=== PATIENT | female | born 1955 | race Caucasian/White ===

== ENCOUNTER 2020-09-16 12:01 | Outpatient (CLI) | payer MEDICARE, SELFPAY ==
[2020-09-16 12:24] LABS: Basophils Absolute Auto 0.05 K/mm3 (0.00-0.10); Basophils Percent Auto 0.8 % (0.0-1.0); Eosinophils Percent Auto 1.6 % (1.0-6.0); Hematocrit 41.1 % (35.0-42.0); Hemoglobin 14.2 g/dL (11.7-13.8); Immature Granulocyte Absolute 0.01 K/mm3 (0.00-0.00); Immature Granulocyte Percent A 0.2 % (0.0-0.0); Lymphocytes Absolute Auto 1.75 K/mm3 (1.10-4.50); Mean Corpuscular HGB Conc 34.5 g/dL (32.0-36.0); Mean Corpuscular Hemoglobin 31.8 pg (27.0-31.0); Mean Corpuscular Volume 91.9 fL (78.0-102.0); Mean Platelet Volume 9.8 fl (9.2-11.8); Monocytes Absolute Auto 0.47 K/mm3 (0.10-0.90); Monocytes Percent Auto 7.5 % (2.0-11.0); Neutrophils Absolute Auto 3.9 K/mm3 (1.7-7.2); Neutrophils Percent Auto 61.9 % (50.0-70.0); Platelet Count Result 269 K/mm3 (150-420); Red Blood Count 4.47 M/mm3 (4.20-5.40); Red Cell Distribution Width 12.6 % (11.6-14.4); White Blood Count 6.2 K/mm3 (4.8-10.8)
[2020-09-16 13:10] LABS: Alanine Aminotransferase 20 U/L (14-59); Albumin Level 4.3 g/dL (3.4-5.0); Alkaline Phosphatase 89 U/L (46-116); Anion Gap 9 mmol/L (8-16); Aspartate Amino Transferase 12 U/L (15-37); Bilirubin,Total 0.6 mg/dL (0.00-1.00); Blood Urea Nitrogen 19 mg/dL (7-18); Calcium 9.3 mg/dL (8.5-10.1); Carbon Dioxide 29 mmol/L (21-32); Chloride 102 mmol/L (98-108); Cholesterol 181 mg/dL (0-200); Estimated Glomerular Filt Rate 48; Glucose 98 mg/dL (70-99); HDL Direct 68 mg/dL (40-60); LDL Cholesterol Calculated 95 mg/dL (<130); Osmolality Calculated 292 mOsm/kg (285-295); Potassium 3.9 mmol/L (3.5-5.1); Sodium 140 mmol/L (136-145); Total Protein 7.3 g/dL (6.4-8.2); Triglycerides 88 mg/dL (0-150)
== END 2020-09-16 12:02 | disposition home or self-care (01) ==
LOC: CHSLAB 12:04
PROVIDERS: PCP Nurse Practitioner Family; Visit Provider Nurse Practitioner Family
DX: E78.5 Hyperlipidemia, unspecified (principal); I10 Essential (primary) hypertension
CPT/HCPCS: 36415; 80053; 80061; 85025

== ENCOUNTER 2020-12-24 00:24 | Day surgery (SDC) | payer MEDICARE, OTHER, SELFPAY ==
[2020-12-17 08:40] VITALS: BMI 20.8
[2020-12-24 09:37] VITALS: BP 123/79; PULSE 74; RESP 20; TEMP 36.6; O2SAT 99; BMI 20.7
[2020-12-24] MEDS: LACTATED RINGERS 1,000 ML 150 ML IV CONT (09:48)
--- NOTE | 2020-12-24 10:19 | PM.HPGS ---
History of Present Illness History of Present Illness Consent: Risks, benefits, and alternatives have been discussed and questions answered. Patient agrees to proceed with procedure. Chief complaint: neoplasm screening Z12.11 Narrative: Jaqui Russo is a 65 year old female here for first colonoscopy, father and brother had colon cancer. Review of Systems Constitutional: Constitutional: Denies headache(s) and Denies weakness Eyes: Eyes: Denies blurry vision ENT: Reports Normal hearing present, Denies headache(s) and Denies neck pain Cardiovascular: Cardiovascular: Denies chest pain and Denies dyspnea Respiratory: Respiratory: Denies dyspnea Gastrointestinal: Gastrointestinal: Reports no additional gastrointestinal complaints Genitourinary: Genitourinary: Denies dysuria Musculoskeletal: Musculoskeletal: Denies neck pain Integumentary/Breasts: Skin/Breast: Denies dry skin Neurologic: Reports Normal hearing present, Denies headache(s) and Denies weakness Psychiatric: Psychiatric: Denies anxiety Endocrine: Endocrine: Denies change in body appearance Hematologic/Lymphatic: Hematologic/Lymphatic: Denies easy bleeding Allergic/Immunologic: Allergic/Immunologic: Denies urticaria PMF Past Medical History Medical History (Updated 12/24/20 @ 10:19 by Deshawn Ferris MD) BMI 26.0-26.9,adult Family history of colon cancer HTN (hypertension) Hyperlipidemia Surgical History Surgical History No pertinent past surgical history Family History Family History Father Malignant neoplasm of prostate Social History Social History Smoking status: Never smoker Tobacco type: cigarettes Alcohol intake: never Substance use: never Substance use type: does not use Living arrangements: alone Spiritual care concerns: No Meds Home Medications and Allergies Home Medications Medication Instructions Recorded Confirmed Type triamcinolone acetonide 0.1 % 1 applic TOPICAL TID PRN #80 g 09/16/20 12/17/20 Rx topical cream metoprolol tartrate 50 mg tablet See Rx Instructions .ROUTE 12/18/20 12/24/20 Rx .COMPLEX #90 tablet simvastatin 40 mg tablet See Rx Instructions .ROUTE 09/02/21 09/08/21 Rx .COMPLEX #90 tablet triamterene 37.5 See Rx Instructions .ROUTE 12/18/20 12/24/20 Rx mg-hydrochlorothiazide 25 mg tablet .COMPLEX #90 tablet Allergies Allergy/AdvReac Type Severity Reaction Status Date / Time No Known Allergies Allergy Verified 12/24/20 09:35 Vital Signs Vital Signs - 24 hr 12/24/20 09:37 Temperature 97.9 F Pulse Rate 74 Respiratory Rate 20 Blood Pressure 123/79 Pulse Oximetry 99 Exam Const: General: comfortable and no acute distress HENMT: General nose exam: Normal nares present Eyes: General: appearance normal, both eyes and all related structures Neck: Neck: no JVD Resp: Auscultation: clear to auscultation bilaterally Cardio: Rate: regular rate Rhythm: regular rhythm GI: Inspection: non-distended GI Palp: Yes Soft to palpation Skin: General skin exam: normal color Neuro: General: gait normal Speech: normal speech Extrem: General: normal to inspection Psych: Mental Status: mental status grossly normal Assessment and Plan Assessment and plan (1) Family history of colon cancer: Code(s): Z80.0 - Family history of malignant neoplasm of digestive organs Status: Acute Assessment and Plan: colonoscopy
[2020-12-24 10:37] VITALS: BP 95/67; PULSE 73; RESP 18; O2SAT 99
[2020-12-24 10:47] VITALS: BP 105/61; PULSE 69; RESP 16; O2SAT 99
[2020-12-24 10:57] VITALS: BP 117/74; PULSE 66; RESP 16; O2SAT 100
== END 2020-12-24 11:15 | disposition home or self-care (01) ==
PROVIDERS: PCP Nurse Practitioner Family; Visit Provider Internal Medicine Gastroenterology
PROC: 0DJD8ZZ Inspection of Lower Intestinal Tract, Via Natural or Artificial Opening Endoscopic (ICD-10-PCS; CPT 45378; principal; 2020-12-24 10:00)
DX: Z12.11 Encounter for screening for malignant neoplasm of colon (principal); K57.30 Diverticulosis of large intestine without perforation or abscess without bleeding; K64.8 Other hemorrhoids; Z80.0 Family history of malignant neoplasm of digestive organs; I10 Essential (primary) hypertension; E78.5 Hyperlipidemia, unspecified
CPT/HCPCS: G0105; J2704; J7120

== ENCOUNTER 2021-09-30 11:25 | Outpatient (CLI) | payer MEDICARE, OTHER, SELFPAY ==
[2021-09-30 11:36] LABS: Basophils Absolute Auto 0.05 K/mm3 (0.00-0.10); Basophils Percent Auto 0.8 % (0.0-1.0); Eosinophils Absolute Auto 0.13 K/mm3 (0.02-0.50); Hematocrit 41.3 % (35.0-42.0); Hemoglobin 14.2 g/dL (11.7-13.8); Immature Granulocyte Absolute 0.02 K/mm3 (0.00-0.00); Immature Granulocyte Percent A 0.3 % (0.0-0.0); Lymphocytes Absolute Auto 1.87 K/mm3 (1.10-4.50); Lymphocytes Percent Auto 29.4 % (18.0-42.0); Mean Corpuscular HGB Conc 34.4 g/dL (32.0-36.0); Mean Corpuscular Hemoglobin 31.3 pg (27.0-31.0); Mean Corpuscular Volume 91.2 fL (78.0-102.0); Mean Platelet Volume 9.3 fl (9.2-11.8); Monocytes Absolute Auto 0.61 K/mm3 (0.10-0.90); Monocytes Percent Auto 9.6 % (2.0-11.0); Neutrophils Absolute Auto 3.7 K/mm3 (1.7-7.2); Neutrophils Percent Auto 57.9 % (50.0-70.0); Platelet Count Result 271 K/mm3 (150-420); Red Blood Count 4.53 M/mm3 (4.20-5.40); Red Cell Distribution Width 12.1 % (11.6-14.4); White Blood Count 6.4 K/mm3 (4.8-10.8)
[2021-09-30 11:51] LABS: Alanine Aminotransferase 21 U/L (14-59); Alkaline Phosphatase 89 U/L (46-116); Anion Gap 5 mmol/L (8-16); Aspartate Amino Transferase 14 U/L (15-37); Bilirubin,Total 0.6 mg/dL (0.00-1.00); Blood Urea Nitrogen 17 mg/dL (7-18); Carbon Dioxide 31 mmol/L (21-32); Chloride 102 mmol/L (98-108); Cholesterol 197 mg/dL (0-200); Estimated Glomerular Filt Rate 53; Glucose 99 mg/dL (70-99); HDL Direct 72 mg/dL (40-60); LDL Cholesterol Calculated 104 mg/dL (<130); Osmolality Calculated 287 mOsm/kg (285-295); Potassium 3.3 mmol/L (3.5-5.1); Sodium 138 mmol/L (136-145); Total Protein 7.6 g/dL (6.4-8.2); Triglycerides 105 mg/dL (0-150)
== END 2021-09-30 11:26 | disposition home or self-care (01) ==
LOC: CHSLAB 11:27
PROVIDERS: PCP Nurse Practitioner Family; Visit Provider Nurse Practitioner Family
DX: E78.5 Hyperlipidemia, unspecified (principal); I10 Essential (primary) hypertension
CPT/HCPCS: 36415; 80053; 80061; 85025

== ENCOUNTER 2023-03-03 14:41 | Outpatient (CLI) | payer MEDICARE, OTHER, SELFPAY ==
[2023-03-03 14:53] LABS: Basophils Absolute Auto 0.07 K/mm3 (0.00-0.10); Basophils Percent Auto 1.1 % (0.0-1.0); Eosinophils Percent Auto 1.6 % (1.0-6.0); Hematocrit 41.1 % (35.0-42.0); Hemoglobin 13.9 g/dL (11.7-13.8); Immature Granulocyte Absolute 0.03 K/mm3 (0.00-0.00); Immature Granulocyte Percent A 0.5 % (0.0-0.0); Lymphocytes Absolute Auto 2.18 K/mm3 (1.10-4.50); Lymphocytes Percent Auto 34.7 % (18.0-42.0); Mean Corpuscular HGB Conc 33.8 g/dL (32.0-36.0); Mean Corpuscular Volume 91.7 fL (78.0-102.0); Mean Platelet Volume 9.2 fl (9.2-11.8); Monocytes Absolute Auto 0.56 K/mm3 (0.10-0.90); Monocytes Percent Auto 8.9 % (2.0-11.0); Neutrophils Absolute Auto 3.3 K/mm3 (1.7-7.2); Neutrophils Percent Auto 53.2 % (50.0-70.0); Platelet Count Result 297 K/mm3 (150-420); Red Blood Count 4.48 M/mm3 (4.20-5.40); Red Cell Distribution Width 12.8 % (11.6-14.4); White Blood Count 6.3 K/mm3 (4.8-10.8)
[2023-03-03 15:47] LABS: Alanine Aminotransferase 30 U/L (14-59); Albumin Level 3.9 g/dL (3.4-5.0); Alkaline Phosphatase 103 U/L (46-116); Anion Gap 9 mmol/L (8-16); Aspartate Amino Transferase 18 U/L (15-37); Bilirubin,Total 0.6 mg/dL (0.00-1.00); Blood Urea Nitrogen 15 mg/dL (7-18); Calcium 9.2 mg/dL (8.5-10.1); Carbon Dioxide 31 mmol/L (21-32); Chloride 101 mmol/L (98-108); Cholesterol 192 mg/dL (0-200); Estimated Glomerular Filt Rate 45; Glucose 102 mg/dL (70-99); HDL Direct 70 mg/dL (40-60); LDL Cholesterol Calculated 97 mg/dL (<130); Osmolality Calculated 292 mOsm/kg (285-295); Potassium 3.4 mmol/L (3.5-5.1); Sodium 141 mmol/L (136-145); Total Protein 7.1 g/dL (6.4-8.2); Triglycerides 123 mg/dL (0-150)
== END 2023-03-03 14:42 | disposition home or self-care (01) ==
LOC: CHSLAB 14:44
PROVIDERS: PCP Nurse Practitioner Family; Visit Provider Nurse Practitioner Family
DX: E78.5 Hyperlipidemia, unspecified (principal); I10 Essential (primary) hypertension
CPT/HCPCS: 36415; 80053; 80061; 85025

== ENCOUNTER 2023-10-13 09:52 | Outpatient (CLI) | payer MEDICARE, SELFPAY ==
[2023-10-13 10:09] LABS: Basophils Absolute Auto 0.05 K/mm3 (0.00-0.10); Basophils Percent Auto 0.9 % (0.0-1.0); Eosinophils Absolute Auto 0.14 K/mm3 (0.02-0.50); Eosinophils Percent Auto 2.6 % (1.0-6.0); Hematocrit 37.1 % (35.0-42.0); Hemoglobin 12.7 g/dL (11.7-13.8); Immature Granulocyte Absolute 0.01 K/mm3 (0.00-0.00); Immature Granulocyte Percent A 0.2 % (0.0-0.0); Lymphocytes Absolute Auto 1.54 K/mm3 (1.10-4.50); Lymphocytes Percent Auto 28.8 % (18.0-42.0); Mean Corpuscular HGB Conc 34.2 g/dL (32-36); Mean Corpuscular Hemoglobin 31.4 pg (27.0-31.0); Mean Corpuscular Volume 91.8 fL (78.0-102.0); Mean Platelet Volume 9.8 fl (9.2-11.8); Monocytes Absolute Auto 0.48 K/mm3 (0.10-0.90); Neutrophils Absolute Auto 3.13 K/mm3 (1.70-7.20); Neutrophils Percent Auto 58.5 % (50.0-70.0); Platelet Count Result 223 K/mm3 (150-420); Red Blood Count 4.04 M/mm3 (4.20-5.40); Red Cell Distribution Width 12.2 % (11.6-14.4); White Blood Count 5.4 K/mm3 (4.8-10.8)
[2023-10-13 10:11] LABS: Appearance Urine Clear (Clear); Bilirubin Urine Negative (Negative); Blood Urine Negative (Negative); Color Urine Yellow (Yellow); Glucose Urine UA Negative (Negative); Ketones Urine Negative (Negative); Leukocyte Esterase Ur Negative LEU/UL (Negative); Nitrate Urine Negative (Negative); Protein Urine Negative (Negative); Urobilinogen Urine 0.2 mg/dL (0.2-1.0)
[2023-10-13 10:17] LABS: Add Urine Microscopic? NO
[2023-10-13 10:31] LABS: Alanine Aminotransferase 10 U/L (14-59); Alkaline Phosphatase 85 U/L (46-116); Anion Gap 10 mmol/L (4-12); Aspartate Amino Transferase 13 U/L (15-37); Bilirubin,Total 0.5 mg/dL (0.00-1.00); Blood Urea Nitrogen 22 mg/dL (7-18); Calcium 9.3 mg/dL (8.5-10.1); Carbon Dioxide 25 mmol/L (21-32); Chloride 103 mmol/L (98-108); Cholesterol 171 mg/dL (0-200); Estimated Glomerular Filt Rate 53; Glucose 98 mg/dL (70-99); HDL Direct 68 mg/dL (40-60); LDL Cholesterol Calculated 86 mg/dL (<130); Magnesium 1.9 mg/dL (1.8-2.4); Osmolality Calculated 289 mOsm/kg (285-295); Potassium 4.3 mmol/L (3.5-5.1); Sodium 138 mmol/L (136-145); Total Protein 7.2 g/dL (6.4-8.2); Triglycerides 85 mg/dL (0-150)
[2023-10-15 01:57] LABS: Vitamin D 25 Hydroxy 8 ng/mL (30-100)
== END 2023-10-13 09:53 | disposition home or self-care (01) ==
LOC: CHSLAB 09:54
PROVIDERS: PCP Nurse Practitioner Family; Visit Provider Nurse Practitioner Family
DX: Z79.899 Other long term (current) drug therapy (principal); I12.9 Hypertensive chronic kidney disease with stage 1 through stage 4 chronic kidney disease, or unspecified chronic kidney disease; N18.9 Chronic kidney disease, unspecified; I10 Essential (primary) hypertension
CPT/HCPCS: 36415; 80053; 80061; 81003; 82306; 83735; 85025

== ENCOUNTER 2024-01-09 10:52 | Outpatient (CLI) | payer MEDICARE, SELFPAY ==
[2024-01-09 11:37] LABS: Alanine Aminotransferase 19 U/L (14-59); Albumin Level 4.2 g/dL (3.4-5.0); Alkaline Phosphatase 87 U/L (46-116); Anion Gap 10 mmol/L (4-12); Aspartate Amino Transferase 17 U/L (15-37); Bilirubin,Total 0.7 mg/dL (0.00-1.00); Blood Urea Nitrogen 29 mg/dL (7-18); Calcium 9.2 mg/dL (8.5-10.1); Carbon Dioxide 28 mmol/L (21-32); Chloride 102 mmol/L (98-108); Estimated Glomerular Filt Rate 37; Glucose 91 mg/dL (70-99); Osmolality Calculated 295 mOsm/kg (285-295); Potassium 4.3 mmol/L (3.5-5.1); Sodium 140 mmol/L (136-145); Total Protein 7.2 g/dL (6.4-8.2)
[2024-01-10 20:04] LABS: Vitamin D 25 Hydroxy 91 ng/mL (30-100)
== END 2024-01-09 10:53 | disposition home or self-care (01) ==
LOC: CHSLAB 10:56
PROVIDERS: PCP Nurse Practitioner Family; Visit Provider Nurse Practitioner Family
DX: I10 Essential (primary) hypertension (principal); N18.9 Chronic kidney disease, unspecified; E55.9 Vitamin D deficiency, unspecified; Z79.899 Other long term (current) drug therapy
CPT/HCPCS: 36415; 80053; 82306

== ENCOUNTER 2024-01-17 12:28 | Outpatient (CLI) | payer MEDICARE, OTHER, SELFPAY ==
--- NOTE | ~2024-01-17 | US_ITS ---
Renal-Bladder ultrasound Clinical History: Chronic kidney disease Technique: Real-time sonographic imaging of the kidneys and urinary bladder was performed. Findings: The right kidney measures 8.8 cm in length and the left kidney measures 9.8 cm. There is no hydronephrosis or renal calculus identified. Renal cortical echogenicity is within normal limits. No renal mass lesion is identified. The urinary bladder is moderately distended at the time of this exam. No intraluminal echoes are iden tified. No abnormal wall thickening is seen. Impression: Unremarkable ultrasound of the kidneys and urinary bladder. Reviewed, dictated and finalized at location M. Impression: Unremarkable ultrasound of the kidneys and urinary bladder.
== END 2024-01-17 12:29 | disposition home or self-care (01) ==
PROVIDERS: PCP Nurse Practitioner Family; Visit Provider Nurse Practitioner Family
DX: N18.9 Chronic kidney disease, unspecified (principal)
CPT/HCPCS: 76775

== ENCOUNTER 2024-05-17 10:38 | Outpatient (CLI) | payer MEDICARE, OTHER, SELFPAY ==
--- OUTSIDE RECORDS SUMMARY | 2024-05-17 11:25 | XMS_ITS | Referral Summary ---
Author Organization [facility] [address] [place] Address [address] [place] [id number] Care Team Providers Care Night Shift Manager Name Role Phone No, Physician Primary Care Provider [phone] Allergies No known active allergies Medications metoprolol tartrate (LOPRESSOR) 50 mg immediate release tablet Take 1 tablet (50 mg total) by mouth daily 12/21/2022 Active simvastatin (ZOCOR) 40 mg tablet Take 1 tablet (40 mg total) by mouth daily 12/21/2022 Active triamterene-hyd roCHLOROthiazid e 37.5-25 mg per tablet Take 1 tablet/capsu le by mouth daily 12/21/2022 Active benzonatate (TESSALON) 100 mg capsuleIndicati ons:Cough Take 1 capsule (100 mg total) by mouth 3 (three) times a day as needed for cough 21 capsule 12/26/2022 Active Active Problems No known active problems Social History Tobacco Use Types Packs/Day Years Used Date Smoking Tobacco: Never Assessed Comments Unknown Sex and Gender Information Value Date Recorded Sex Assigned at Not on file Legal Sex Female 9:59 AM CDT Gender Identity Not on file Sexual Orientation Not on file Last Filed Vital Signs Vital Sign Reading Time Taken Comments Blood Pressure 114/68 12/26/2022 12:11 PM CDT Pulse 75 12/26/2022 12:11 PM CDT Temperature 36.8 ??C (98.2 ??F) 12/26/2022 12:11 PM C DT Respiratory Rate 14 12/26/2022 12:11 PM CDT Oxygen Saturation 98% 12/26/2022 12:11 PM CDT Inhaled Oxygen Concentration - - Weight - - Height 162.6 cm (5' 4 ) 12/26/2022 12:11 PM CDT Body Mass Index - - Plan of Treatment Not on file Insurance MEDICARE [facility] [place] Care Teams Night Shift Manager Relationship Specialty Start Date End Date No, Physician PCP - General 12/26/22
--- OUTSIDE RECORDS SUMMARY | 2024-05-17 11:25 | XMS_ITS | Clinical Summary ---
Author Organization [facility] Facility Address [address] [place] [address] Care Team Providers Care Procedure Manager Name Role Phone Unavailable Primary Care Provider Unavailabl e Allergies No known active allergies Medications simvastatin (ZOCOR) 40 MG tablet Take 40 mg by mouth in the morning. 12/21/2022 Active metoprolol tartrate (LOPRESSOR) 50 MG tablet Take 50 mg by mouth 1 (one) time each day Active Dapagliflozin Propanediol (Farxiga) 10 MG tablet Take 10 mg by mouth 1 (one) time each day in the morning Active Cholecalciferol (Vitamin D3) 1.25 MG (66613 UT) capsule Take 1 capsule by mouth per week Active lisinopril-hydro CHLOROthiazide (PRINZIDE,ZESTOR ETIC) 20-25 MG per tablet Take 1 tablet by mouth 1 (one) time each day Active Active Problems Problem Noted Date Diagnosed Date Hypertension 01/11/2024 Chronic kidney disease 01/11/2024 Family History Medical History Relation Comments Cancer Father prostate Relation Status Comments Father Social History Tobacco Use Types Packs/Day Years Used Date Smoking Tobacco: Never Smokeless Tobacco: Never Tobacco Cessation:Counseling Given: Not Answered Alcohol Use Standard Drinks/Week Comments Never 0 (1 standard drink = 0.6 oz pur e alcohol) Comments Unknown Sex and Gender Information Value Date Recorded Sex Assigned at Not on file Legal Sex Female 1:52 PM EDT Gender Identity Not on file Sexual Orientation Not on file Plan of Treatment Upcoming Encounters Date Type Department Care Team (Late st Contact Info) Description 05/22/2024 12:30 PM FOLDER MACHINE ADJUSTER Office Visit [facility]. [address] [facility] [address] [place] [phone] Kade Payan MD [address] [facility] [address] [place] [address] Health Maintenance Due Date Last Done Comments Breast Cancer Screening 1954 Pneumococcal Vaccine: 65+ Ye ars (1 of 2 - PCV) 1960 Colorectal Cancer Screening: Annual FOBT 07/16/2003 Colorectal Cancer Screening: Colonoscopy 07/16/2003 Colorectal Cancer Screening: Sigmoidoscopy 07/16/2003 Influenza Vaccine (#1) 2023 Hepatitis B Vaccine Aged Out No longe r eligible based on patient's age to complete this topic
--- OUTSIDE RECORDS SUMMARY | 2024-05-17 11:25 | XMS_ITS | Clinical Summary ---
Author Organization [facility] [address] [place] Address [address] [place] [phone] Care Team Providers Care Clinical Research Scientist Name Role Phone No, Physician Primary Care Provider Allergies No known active allergies Medications metoprolol [...] on file Sexual Orientation Not on file Obstetrics History Last Filed Vital Signs Vital Sign Reading [...] Mass Index - - Plan of Treatment Health Maintenance Due Date Last Done Comments Breast Cancer Screening-Mammogram 1954 Colon Cancer Screening-Colonoscopy 1954 Depression Screening 1954 Fall Risk Assessment 1954 Hepatitis C Screening 1954 Osteoporosis Screening-Bone Density Scan 1954 DTaP/Tdap/Td Vaccine (1 - Tdap) 1965 Hepatitis B Screening 1972 Zoster Vaccine (1 of 2) 2004 Pneumococcal vaccine 65+ (1 of 1 - PCV) 07/16/2019 Well Visit 65+ 07/16/2019 Covid-19 Vaccine (5 - 2023-2 5 season) 2023 01/20/2022, 03/19/2021, 07/01/2020, Additional history exists Influenza Vaccine (#1) 2023 01/20/2022 Insurance MEDICARE [facility] Address: [address] [address] [place] [address] [facility] [place] Care Teams Clinical Research Scientist Relationship Specialty Start Date End Date No, Physician PCP - General 12/26/22
[2024-05-17 11:47] LABS: Alanine Aminotransferase 22 U/L (14-59); Albumin Level 4.2 g/dL (3.4-5.0); Alkaline Phosphatase 73 U/L (46-116); Anion Gap 6 mmol/L (4-12); Aspartate Amino Transferase 16 U/L (15-37); Bilirubin,Total 0.6 mg/dL (0.00-1.00); Blood Urea Nitrogen 22 mg/dL (7-18); Calcium 9.4 mg/dL (8.5-10.1); Carbon Dioxide 29 mmol/L (21-32); Chloride 104 mmol/L (98-108); Estimated Glomerular Filt Rate 44; Glucose 95 mg/dL (70-99); Osmolality Calculated 291 mOsm/kg (285-295); Potassium 4.9 mmol/L (3.5-5.1); Sodium 139 mmol/L (136-145)
== END 2024-05-17 10:39 | disposition home or self-care (01) ==
LOC: CHSLAB 10:40
PROVIDERS: PCP Nurse Practitioner Family; Visit Provider Nurse Practitioner Family
DX: N18.9 Chronic kidney disease, unspecified (principal)
CPT/HCPCS: 36415; 80053

== ENCOUNTER 2024-05-29 08:28 | Outpatient (CLI) | payer MEDICARE, OTHER, SELFPAY ==
[2024-05-29 08:45] LABS: Basophils Absolute Auto 0.04 K/mm3 (0.00-0.10); Basophils Percent Auto 0.8 % (0.0-1.0); Eosinophils Absolute Auto 0.24 K/mm3 (0.02-0.50); Eosinophils Percent Auto 4.7 % (1.0-6.0); Hematocrit 35.7 % (35.0-42.0); Hemoglobin 11.8 g/dL (11.7-13.8); Immature Granulocyte Absolute 0.02 K/mm3 (0.00-0.00); Immature Granulocyte Percent A 0.4 % (0.0-0.0); Lymphocytes Absolute Auto 1.38 K/mm3 (1.10-4.50); Lymphocytes Percent Auto 26.7 % (18.0-42.0); Mean Corpuscular HGB Conc 33.1 g/dL (32-36); Mean Corpuscular Hemoglobin 30.9 pg (27.0-31.0); Mean Corpuscular Volume 93.5 fL (78.0-102.0); Mean Platelet Volume 9.5 fl (9.2-11.8); Monocytes Percent Auto 9.7 % (2.0-11.0); Neutrophils Absolute Auto 2.98 K/mm3 (1.70-7.20); Neutrophils Percent Auto 57.7 % (50.0-70.0); Platelet Count Result 247 K/mm3 (150-420); Red Blood Count 3.82 M/mm3 (4.20-5.40); Red Cell Distribution Width 12.3 % (11.6-14.4); White Blood Count 5.2 K/mm3 (4.8-10.8)
[2024-05-29 08:46] LABS: Collection Time Urine 24 HOURS
[2024-05-29 08:50] LABS: Add Urine Microscopic? YES; Appearance Urine Clear (Clear); Bilirubin Urine Negative (Negative); Blood Urine Negative (Negative); Color Urine Light Yellow (Yellow); Glucose Urine UA Negative (Negative); Ketones Urine Negative (Negative); Leukocyte Esterase Ur 1+ (Negative); Nitrate Urine Negative (Negative); Protein Urine Negative (Negative); Urobilinogen Urine 0.2 mg/dL (0.2-1.0)
[2024-05-29 08:57] LABS: Bacteria Urine Trace /hpf; RBC Urine None seen /hpf (0-2); Squamous Epithelial Cell Urine Few /hpf (Few); WBC Urine 0-3 /hpf (0-3)
--- OUTSIDE RECORDS SUMMARY | 2024-05-29 09:04 | XMS_ITS | Clinical Summary ---
Author Organization [facility] [address] [place] Address [address] [place] [phone] Care Team Providers Care Cigar Packer And Picker Name Role Phone No, Physician Primary Care Provider [phone] Allergies No known active allergies Medications metoprolol [...] 75 12/26/2022 12:11 PM CDT Temperature 36.8 C (98.2 F) 12/26/2022 12:11 PM CDT Respiratory Rate 14 12/26/2022 12:11 PM CDT [...] Well Visit 65+ 07/16/2019 Covid-19 Vaccine (5 2023-2 5 season) 2023 01/20/2022, 03/19/2021, 07/01/2020, Additional history exists Influenza Vaccine (#1) 2023 01/20/2022 Insurance MEDICARE [facility] [place] Care Teams Cigar Packer And Picker Relationship Specialty Start Date End Date No, Physician PCP - General 12/26/22
--- OUTSIDE RECORDS SUMMARY | 2024-05-29 09:04 | XMS_ITS | Clinical Summary ---
Author Organization [facility] Facility Address [address] [place] [address] Care Team Providers Care Correctional Lieutenant Name Role Phone Unavailable Primary Care Provider Unavailabl e Allergies No known active allergies Medications simvastatin (ZOCOR) 40 MG tablet Take 40 mg by mouth in the morning. Active metoprolol tartrate (LOPRESSOR) 50 MG tablet Take 50 mg by mouth 1 (one) time each day Active Cholecalciferol (Vitamin D3) 1.25 MG (49189 UT) capsule Take 1 capsule by mouth per week Active lisinopril-hydr oCHLOROthiazide (PRINZIDE,ZESTO RETIC) 20-25 MG per tablet Take 1 tablet by mouth 1 (one) time each day Active Dapagliflozin Propanediol (Farxiga) 10 MG tablet Take 10 mg by mouth 1 (one) time each day in the morning 05/22/19 25 Discontinued (Discontinue d by another clinician (does not appear on AVS)) Active Problems Problem Noted Date Diagnosed Date Hypertension 01/11/2024 Chronic kidney disease 01/11/2024 Encounters Date Type Department Care Team Description 05/22/2024 12:30 PM HASSOCK MAKER Office Visit [facility] [address] [place] [address] Kade Payan MD Stage 3 chronic kidney disease, not otherwise specified (HCC) (Primary Dx); Hypertension; Type 2 diabetes mellitus with diabetic nephropathy (HCC); Hypertensive chronic kidney disease, unspecified, with chronic kidney disease stage I through stage IV, or unspecified 05/22/2024 Documentation Only [facility] [address] [place] [phone] Sofia Zayas MA 05/18/2024 Documentation Only [facility] [address] [place] [phone] Kade Payan MD 05/18/2024 Documentation Only [facility]. [address] [facility] [address] [place] [phone] Kade Payan MD from Last 3 Months Family History Medical History Relation Comments Cancer [...] Sign Reading Time Taken Comments Blood Pressure 97/56 05/22/2024 12:22 PM HASSOCK MAKER Pulse 76 05/22/2024 12:22 PM HASSOCK MAKER Temperature 36.4 C (97.6 F) 05/22/2024 12:22 PM HASSOCK MAKER Respiratory Rate - - Oxygen Saturation 97% 05/22/2024 12:22 PM HASSOCK MAKER Inhaled Oxygen Concentration - - Weight 60.3 kg (133 lb) 05/22/2024 12:22 PM HASSOCK MAKER Height 162.6 cm (5' 4 ) 05/22/2024 12:22 PM HASSOCK MAKER Body Mass Index 22.83 05/22/2024 12:22 PM HASSOCK MAKER Plan of Treatment Health Maintenance Due Date Last Done Comments Breast Cancer Screening 1954 Pneumococcal Vaccine: 65+ Ye ars (1 of 2 - PCV) 1960 Colorectal Cancer Screening: Annual FOBT 07/16/2003 Colorectal Cancer Screening: Colonoscopy 07/16/2003 Colorectal Cancer Screening: Sigmoidoscopy 07/16/2003 Influenza Vaccine (#1) 2023 Diabetes: Hemoglobin A1C 05/22/2024 Diabetes: Ophthalmology Exam 05/22/2024 Diabetes: Pedal Pulse Checked 05/22/2024 Diabetes: Sensory Foot Exam 05/22/2024 Diabetes: Visual Foot Exam 05/22/2024 Hepatitis B Vaccine Aged Out No longe r eligible based on patient's age to complete this topic Insurance MEDICARE [facility]
--- OUTSIDE RECORDS SUMMARY | 2024-05-29 09:04 | XMS_ITS | Referral Summary ---
Author Organization [facility] [address] [place] Address [address] [place] [phone] Care Team Providers Care Evaporator Operator Molasses Name Role Phone No, Physician Primary Care Provider [phone] Allergies No known active allergies Medications metoprolol [...] Treatment Not on file Insurance MEDICARE [facility] [place] Care Teams Evaporator Operator Molasses Relationship Specialty Start Date End Date No, Physician PCP - General 12/26/22
[2024-05-29 09:16] LABS: Hemoglobin A1C 5.6 % (<5.7)
[2024-05-29 09:37] LABS: Alanine Aminotransferase 23 U/L (14-59); Alkaline Phosphatase 74 U/L (46-116); Anion Gap 8 mmol/L (4-12); Aspartate Amino Transferase 15 U/L (15-37); Bilirubin Direct 0.1 mg/dL (0-0.2); Bilirubin,Total 0.6 mg/dL (0.00-1.00); Blood Urea Nitrogen 20 mg/dL (7-18); Calcium 9.4 mg/dL (8.5-10.1); Carbon Dioxide 30 mmol/L (21-32); Chloride 103 mmol/L (98-108); Estimated Glomerular Filt Rate 45; Free T4 Free Thyroxine 0.77 ng/dL (0.76-1.46); Glucose 105 mg/dL (70-99); Osmolality Calculated 294 mOsm/kg (285-295); Phosphorus 3.8 mg/dL (2.6-4.7); Potassium 4.3 mmol/L (3.5-5.1); Sodium 141 mmol/L (136-145)
[2024-05-29 09:51] LABS: Erythrocyte Sedimentation Rate 12 mm/hr (0-20)
[2024-05-29 11:26] LABS: Creatinine Urine 126.56 mg/dL (40-278); Total Protein Urine Random 12.1 mg/dL (0.0-11.9)
[2024-05-29 11:33] LABS: Creatinine Urine 65.48 mg/dL (40-278); Patient Weight 129 Lbs; Serum Creat 1.18
[2024-05-29 11:35] LABS: Creatinine Clearance Urine 47.4 ml/min (97-137); Total Volume 24 Hour Urine 1150 ml
[2024-05-30 08:08] LABS: Protein, Total 6.8 g/dL (6.1-8.1)
[2024-05-30 14:09] LABS: Parathyroid Intact 31 pg/mL (16-77)
[2024-05-31 04:44] LABS: Complement C3 119 mg/dL (83-193)
[2024-05-31 08:43] LABS: Albumin 4.3 g/dL (3.8-4.8); Alpha 1 Globulin 0.2 g/dL (0.2-0.3); Alpha 2 Globulin 0.6 g/dL (0.5-0.9); Beta 1 Globulin 0.4 g/dL (0.4-0.6)
== END 2024-05-29 08:29 | disposition home or self-care (01) ==
LOC: CHSLAB 08:30
PROVIDERS: PCP Nurse Practitioner Family; Visit Provider Internal Medicine Nephrology
DX: N18.30 Chronic kidney disease, stage 3 unspecified (principal); I10 Essential (primary) hypertension; E11.21 Type 2 diabetes mellitus with diabetic nephropathy; I12.9 Hypertensive chronic kidney disease with stage 1 through stage 4 chronic kidney disease, or unspecified chronic kidney disease
CPT/HCPCS: 36415; 80069; 80076; 81001; 82570; 82575; 83036; 83970; 84155; 84156; 84165; 84439; 84443; 85025; 85652; 86160

== ENCOUNTER 2025-01-23 11:45 | Outpatient (CLI) | payer MEDICARE, SELFPAY ==
[2025-01-23 12:17] LABS: Hematocrit 37.0 % (35.0-42.0); Hemoglobin 12.2 g/dL (11.7-13.8); Immature Granulocyte Percent A 0.4 % (0.0-0.0); Lymphocytes Absolute Auto 1.57 K/mm3 (1.10-4.50); Mean Corpuscular HGB Conc 33.0 g/dL (32-36); Mean Corpuscular Hemoglobin 31.0 pg (27.0-31.0); Mean Corpuscular Volume 93.9 fL (78.0-102.0); Nucleated Red Blood Cells Absolute Auto 0.00 K/mm3 (0.00-0.00); Nucleated Red Blood Cells Perc 0.0 % (0-0.0); Platelet Count Result 268 K/mm3 (150-420); Red Blood Count 3.94 M/mm3 (4.20-5.40); White Blood Count 7.1 K/mm3 (4.8-10.8)
[2025-01-23 12:52] LABS: Alanine Aminotransferase 13 U/L (6-35); Albumin Level 4.6 g/dL (3.5-5.1); Alkaline Phosphatase 75 U/L (38-126); Anion Gap 9 mmol/L (4-12); Aspartate Amino Transferase 23 U/L (14-36); Bilirubin,Total 0.7 mg/dL (0.2-1.3); Blood Urea Nitrogen 34 mg/dL (7-17); Calcium 10.2 mg/dL (8.4-10.2); Carbon Dioxide 27 mmol/L (22-30); Chloride 104 mmol/L (98-107); Cholesterol 179 mg/dL (0-200); Estimated Glomerular Filt Rate 46; Glucose 99 mg/dL (65-110); HDL Direct 62 mg/dL; Osmolality Calculated 297 mOsm/kg (285-295); Potassium 5.1 mmol/L (3.4-5.0); Sodium 140 mmol/L (137-145); Total Protein 8.3 g/dL (6.3-8.2); Triglycerides 125 mg/dL (<150)
== END 2025-01-23 11:46 | disposition home or self-care (01) ==
LOC: CHSLAB 11:46
PROVIDERS: PCP Nurse Practitioner Family; Visit Provider Nurse Practitioner Family
DX: Z79.899 Other long term (current) drug therapy (principal); E55.9 Vitamin D deficiency, unspecified; Z13.6 Encounter for screening for cardiovascular disorders; E78.5 Hyperlipidemia, unspecified; N18.9 Chronic kidney disease, unspecified; I12.9 Hypertensive chronic kidney disease with stage 1 through stage 4 chronic kidney disease, or unspecified chronic kidney disease
CPT/HCPCS: 36415; 80053; 80061; 82306; 85025